=== PATIENT | female | born 1940 | race Caucasian/White ===

== ENCOUNTER 2018-10-26 09:59 | Day surgery (SDC) | payer MEDICARE ==
[~2018-10-26 09:59] MED LIST: Acetaminophen TAB* 325 MG PO PRN; Buffered Lidocaine 1% SYRIN* 1 ML/SYRINGE INTRADERM ONE
[2018-10-26] MEDS ORDERED: Lidocaine 2% EPI 1:200000 MPF*10-20 ML VIAL ONE (12:13)
[2018-10-26] MEDS ORDERED: acetaZOLAMIDE TAB* 250 MG ONE (12:13)
[2018-10-26] MEDS ORDERED: Midazolam* 1 MG/ML 2 ML VIAL (2 MG) ONE (12:13)
[2018-10-26] MEDS ORDERED: Proparacaine 0.5% OPHTH.SOL* 15 ML BTL ONE (12:13)
[2018-10-26] MEDS ORDERED: Povidone Iodine 5% OPTH* 30 ML BTL ONE (12:13)
[2018-10-26] MEDS ORDERED: Neomycin/Polymy/Dex OPTH.SUSP* MAXITROL 0.1% 5 ML ONE (12:13)
[2018-10-26] MEDS ORDERED: Lidocaine 1%* 5 ML VIAL ONE (12:13)
[2018-10-26] MEDS ORDERED: Cyclopentolate 1% OPTH.SOL* 2 ML BTL ONE (12:13)
[2018-10-26] MEDS ORDERED: Phenylephrine OPHTH SOL 2.5%* 2 ML ONE (12:13)
[2018-10-26] MEDS ORDERED: Ketorolac 0.5% OPHTH (NF) 0.5 % 5 ML BTL ONE (12:13)
[2018-10-26 13:14] VITALS: BP 135/59
--- NOTE | 2018-10-26 13:43 | OP ---
OPERATIVE NOTE: DATE OF OPERATION: 10/26/18 DATE OF : 40 SURGEON: Shai John M.D. PREOPERATIVE DIAGNOSIS: Cataract, right eye. POSTOPERATIVE DIAGNOSIS: Cataract, right eye. OPERATIVE PROCEDURE: Extracapsular cataract extraction with intraocular lens implant right eye. PROCEDURE: The patient was brought to the operating room after being given 1/2% Alcaine with epineph rine drops in the preoperative area. The eye was prepped and draped in the usual sterile fashion. S terile drape and eyelid speculum were placed. Again, topical 1/2% Alcaine with epinephrine was given . A paracentesis incision was made at the 9 o'clock position with the No.75 blade. Clear cornea inc ision 2.2 x 2.2-mm was created at the 12 o'clock position starting at the anterior limbus using the 2 .2-mm keratome. The anterior chamber was irrigated with 0.4 mL of 1% non-preservative intracameral l idocaine and filled with DisCoVisc. A capsulorrhexis was completed using the cystotome and the Utrat a forceps. Hydrodissection was performed with balanced salt solution. The lens nucleus was removed w ith the Phacoemulsification handpiece without incident. Cortex was removed with the irrigation-aspir ation handpiece. The capsular bag was re-inflated using DisCoVisc and an [id number] 19.5 implant was ins erted with the shooter, oriented to the 94-degree meridian. All measurements were confirmed with ORA . The irrigation-aspiration handpiece was used to remove all residual DisCoVisc. The eye was refill ed with balanced salt solution and the wound checked and found to be watertight. Topical Maxitrol dr ops were given. [id number]/[facility] #: [id number]
== END 2018-10-26 13:07 | disposition home or self-care (01) ==
LOC: OREAST 09:59
PROVIDERS: ATTEND Specialist
DX: H25.11 Age-related nuclear cataract, right eye (principal); D18.09 Hemangioma of other sites; E03.9 Hypothyroidism, unspecified; M19.90 Unspecified osteoarthritis, unspecified site; E78.00 Pure hypercholesterolemia, unspecified; L40.9 Psoriasis, unspecified; Q85.8 Other phakomatoses, not elsewhere classified; G62.9 Polyneuropathy, unspecified
CPT/HCPCS: A9270-GY; J2250; V2787

== ENCOUNTER 2018-11-02 08:26 | Day surgery (SDC) | payer MEDICARE ==
[2018-11-02] MEDS ORDERED: Midazolam* 1 MG/ML 2 ML VIAL (2 MG) ONE (09:56)
[2018-11-02] MEDS ORDERED: Cyclopentolate 1% OPTH.SOL* 2 ML BTL ONE (09:57)
[2018-11-02] MEDS ORDERED: Phenylephrine OPHTH SOL 2.5%* 2 ML ONE (09:57)
[2018-11-02] MEDS ORDERED: Proparacaine 0.5% OPHTH.SOL* 15 ML BTL ONE (09:57)
[2018-11-02] MEDS ORDERED: Lidocaine 1%* 5 ML VIAL ONE (09:57)
[2018-11-02] MEDS ORDERED: Povidone Iodine 5% OPTH* 30 ML BTL ONE (09:57)
[2018-11-02] MEDS ORDERED: acetaZOLAMIDE TAB* 250 MG ONE (09:57)
[2018-11-02] MEDS ORDERED: Neomycin/Polymy/Dex OPTH.SUSP* MAXITROL 0.1% 5 ML ONE (09:57)
[2018-11-02] MEDS ORDERED: Ketorolac 0.5% OPHTH (NF) 0.5 % 5 ML BTL ONE (09:57)
[2018-11-02] MEDS ORDERED: Lidocaine 2% EPI 1:200000 MPF*10-20 ML VIAL ONE (09:57)
[2018-11-02 11:13] VITALS: BP 130/70
--- NOTE | 2018-11-02 11:22 | OP ---
OPERATIVE NOTE: DATE OF OPERATION: 11/02/18 DATE OF : 40 SURGEON: Shai John M.D. PREOPERATIVE DIAGNOSIS: Cataract, left eye. POSTOPERATIVE DIAGNOSIS: Cataract, left eye. OPERATIVE PROCEDURE: Extracapsular cataract extraction with intraocular lens implant, left eye. PROCEDURE: The patient was brought to the operating room after being given 1/2% Alcaine with epineph rine drops in the preoperative area. The eye was prepped and draped in the usual sterile fashion. S terile drape and eyelid speculum were placed. Again, topical 1/2% Alcaine with epinephrine was given . A paracentesis incision was made at the 3 o'clock position with the No.75 blade. Clear cornea inc ision 2.2 x 2.2-mm was created at the 6 o'clock position starting at the anterior limbus using the 2. 2-mm keratome. The anterior chamber was irrigated with 0.4 mL of 1% non-preservative intracameral li docaine and filled with DisCoVisc. A capsulorrhexis was completed using the cystotome and the Utrata forceps. Hydrodissection was performed with balanced salt solution. The lens nucleus was removed wi th the Phacoemulsification handpiece without incident. Cortex was removed with the irrigation-aspira tion handpiece. The capsular bag was re-inflated using DisCoVisc and an [id number] 20 implant was insert ed with the shooter, oriented to the 84-degree meridian. Horizontal reference edwards were made with t he patient in the seated position and all measurements confirmed with ORA. The irrigation- aspiratio n handpiece was used to remove all residual DisCoVisc. The eye was refilled with balanced salt solut ion and the wound checked and found to be watertight. Topical Maxitrol drops were given. [id number]/[facility] #: [id number]
== END 2018-11-02 10:58 | disposition home or self-care (01) ==
LOC: OREAST 08:26
PROVIDERS: ATTEND Specialist
DX: H25.12 Age-related nuclear cataract, left eye (principal); D18.09 Hemangioma of other sites; I10 Essential (primary) hypertension; E78.5 Hyperlipidemia, unspecified; E03.9 Hypothyroidism, unspecified
CPT/HCPCS: A9270-GY; J2250; V2787

== ENCOUNTER 2019-05-21 10:42 | Emergency (ER) | payer MEDICARE ==
--- OUTSIDE RECORDS SUMMARY | 2019-05-21 11:03 | XMS REPORT | Continuity of Care Document ---
:1940 External Reference #:[id number] Author Name TAMIKA Dumont (transmitted by agent of provider Felicity Santana) Address [address] [place] [id number] Care Team Providers Name Role Phone Nadeen Mcclain MD - Internal Medicine Care Team Information Business Data Analyst Problems Active Problems Provider Date Psoriasis with arthropathy Luis Amezcua M.D. Onset: 01/22/2012 Medications Correction (Current) Use Encounter Luis Amezcua M.D. Onset: Psoriasis Luis Amezcua M.D. Onset: 01/22/2012 Taking medication TAMIKA Dumont Onset: 07/12/2014 Taking medication TAMIKA Dumont Onset: 06/06/2015 Social History Type Date Description Comments Sex Unknown ETOH Use Denies alcohol use Tobacco Use Start: Unknown End: Patient is a former pt quit at age 34 Unknown smoker Smoking Status Reviewed: 04/28/19 Patient is a former pt quit at age 34 smoker Exercise Exercises regularly Type/Frequency Allergies, Adverse Reactions, Alerts Description No Known Drug Allergies Medications Active Medications SIG Qnty Indications Ordering Date Provider Cyclobenzaprine HCL take one tablet 14tabs Sb Frye, 05/25/2018 5mg by mouth at [employer] [facility] Tablets bedtime as needed for back pain Shingrix 2 doses 6 month 2units Z23 Sb Frye, 10/29/2017 50mcg Suspension Rec apart [employer] Calcipotriene/Betamethas use 2x daily on 60gm L40.9 Mattofimahogany Frye, 2016 one Dipropionate lesions for 2 [employer] 0.005-0.064% weeks on and 1 Ointment week off Methotrexate Take 6 Tablets 72tabs L40.50 Zsofia Uday, 01/22/2017 2.5mg Tablets By Mouth Every [employer] Week Z79.899 Voltaren apply to affected 1tubes L40.50 Sb Frye, 10/21/2012 1% Gel area twice a day, [employer] as needed Hydroxychloroquine Sulfate take 1 tablet by 180tabs L40.50 Sb Frye, 02/02/2011 200mg mouth twice a day [employer] Tablets Z79.899 Folic Acid 1 po qd 90tabs Z79.899 Luis Amezcua, 07/31/2010 1mg Tablets M.D. Ketorolac Tromethamine Instill One Drop Unknown 0.5% In Right Eye Three Solution Times Daily, Start The Day Before Surgery Ciprofloxacin HCL Instill One Drop Unknown 0.3% In Right Eye Three Solution Times Daily, Start The Day Before Surgery Prednisolone Acetate Instill 1 Drop In Unknown 1% The Right Eye Suspension Three Times Daily - Taper as Directed Refresh use daily as Unknown 1.4-0.6% Solution needed for dry eyes Econazole Nitrate topical bid max 4 90units Luis Endo, 1% Cream weeks M.D. Bilberry 1 daily Unknown 500mg Capsules Melatonin 1 po qhs 90caps Unknown 5mg Capsules Restasis one gtts ou bid 3months Unknown 0.05% Emulsion Gabapentin 1 tablet po q hs 30caps Unknown 400mg Capsules Levoxyl 1 po qd 30tabs Unknown 50mcg Tablets Simvastatin 1 po qd Unknown 20mg Tablets Immunizations Description No Information Available Vital Signs Date Vital Result Comment 04/28/2019 11:36am Height 65 inches 5'5" Weight 171.38 lb Heart Rate 64 /min BP Systolic Sitting 112 mmHg BP Diastolic Sitting 66 mmHg Body Temperature 98.1 F O2 % BldC Oximetry 96 % BMI (Body Mass Index) 28.5 kg/m2 01/27/2019 11:27am Height 65 inches 5'5" Weight 167.00 lb Heart Rate 65 /min BP Systolic 135 mmHg BP Diastolic 72 mmHg O2 % BldC Oximetry 96 % BMI (Body Mass Index) 27.8 kg/m2 Results Test Acquired Date Facility Test Result H/L Range Note CBC Auto 04/26/2019 [facility] White Blood 5.3 10^3/uL Normal 3.5-10.[address] [place] [address] [phone] Red Blood Count 3.90 10^6/uL Normal 3.70-4.87 Hemoglobin 12.7 g/dL Normal 12.0-16.0 Hematocrit 37 % Normal 35-47 Mean Corpuscular Volume 95 fL Normal 80-97 Mean Corpuscular Hemoglobin 33 pg High 27-31 Mean Corpuscular HGB Conc 34 g/dL Normal 31-36 Red Cell Distribution Width 14 % Normal 10-15 Platelet Count 149 10^3/uL Low 150-450 Mean Platelet Volume 7.5 fL Normal 7.4-10.4 Abs Neutrophils 2.8 10^3/uL Normal 1.5-7.7 Abs Lymphocytes 1.9 10^3/uL Normal 1.0-4.8 Abs Monocytes 0.4 10^3/uL Normal 0-0.8 Abs Eosinophils 0.1 10^3/uL Normal 0-0.6 Abs Basophils 0.0 10^3/uL Normal 0-0.2 Abs Nucleated RBC 0.0 10^3/uL Granulocyte % 53.4 % Lymphocyte % 36.7 % Monocyte % 7.8 % Eosinophil % 1.4 % Basophil % 0.7 % Nucleated Red Blood Cells % 0.1 Comp Metabolic 04/26/2019 [facility] Sodium 140 mmol/L Normal 135-[address] [place] [address] [phone] Potassium 4.2 mmol/L Normal 3.5-5.0 Chloride 104 mmol/L Normal 101-111 Co2 Carbon Dioxide 31 mmol/L Normal 22-32 Anion Gap 5 mmol/L Normal 2-11 Glucose 87 mg/dL Normal 70-100 Blood Urea Nitrogen 14 mg/dL Normal 6-24 Creatinine 0.90 mg/dL Normal 0.51-0.95 BUN/Creatinine Ratio 15.6 Normal 8-20 Calcium 9.6 mg/dL Normal 8.6-10.3 Total Protein 6.8 g/dL Normal 6.4-8.9 Albumin 4.2 g/dL Normal 3.2-5.2 Globulin 2.6 g/dL Normal 2-4 Albumin/Globulin Ratio 1.6 Normal 1-3 Total Bilirubin 0.50 mg/dL Normal 0.2-1.0 Alkaline Phosphatase 100 U/L Normal 34-104 Alt 17 U/L Normal 7-52 Ast 19 U/L Normal 13-39 Egfr Non- 60.4 >60 Egfr 73.1 >60 1 Laboratory test 04/26/2019 [facility] C Reactive < 1.00 Normal <8.[address] Protein mg/[place] [address] [phone] Erythrocyte Sed Rate 36 mm/Hr High 0-29 CBC Auto 2019 [facility] White Blood 4.6 10^3/uL Normal 3.5-10.[address] [place] [address] [phone] Red Blood Count 3.82 10^6/uL Normal 3.70-4.87 Hemoglobin 12.1 g/dL Normal 12.0-16.0 Hematocrit 36 % Normal 35-47 Mean Corpuscular Volume 95 fL Normal 80-97 Mean Corpuscular Hemoglobin 32 pg High 27-31 Mean Corpuscular HGB Conc 33 g/dL Normal 31-36 Red Cell Distribution Width 14 % Normal 10-15 Platelet Count 146 10^3/uL Low 150-450 Mean Platelet Volume 8.0 fL Normal 7.4-10.4 Abs Neutrophils 2.5 10^3/uL Normal 1.5-7.7 Abs Lymphocytes 1.7 10^3/uL Normal 1.0-4.8 Abs Monocytes 0.4 10^3/uL Normal 0-0.8 Abs Eosinophils 0.1 10^3/uL Normal 0-0.6 Abs Basophils 0.0 10^3/uL Normal 0-0.2 Abs Nucleated RBC 0.0 10^3/uL Granulocyte % 53.0 % Lymphocyte % 36.3 % Monocyte % 7.7 % Eosinophil % 2.1 % Basophil % 0.9 % Nucleated Red Blood Cells % 0.1 Comp Metabolic 2019 [facility] Sodium 138 mmol/L Normal 135-[address] [place] [address] [phone] Potassium 4.8 mmol/L Normal 3.5-5.0 Chloride 103 mmol/L Normal 101-111 Co2 Carbon Dioxide 32 mmol/L Normal 22-32 Anion Gap 3 mmol/L Normal 2-11 Glucose 101 mg/dL High 70-100 Blood Urea Nitrogen 18 mg/dL Normal 6-24 Creatinine 0.82 mg/dL Normal 0.51-0.95 BUN/Creatinine Ratio 22.0 High 8-20 Calcium 9.2 mg/dL Normal 8.6-10.3 Total Protein 6.2 g/dL Low 6.4-8.9 Albumin 4.1 g/dL Normal 3.2-5.2 Globulin 2.1 g/dL Normal 2-4 Albumin/Globulin Ratio 2.0 Normal 1-3 Total Bilirubin 0.30 mg/dL Normal 0.2-1.0 Alkaline Phosphatase 101 U/L Normal 34-104 Alt 25 U/L Normal 7-52 Ast 20 U/L Normal 13-39 Egfr Non- 67.2 >60 Egfr 81.4 >60 2 Laboratory test 2019 [facility] C Reactive 1.14 mg/L Normal <8.[address] [place] [address] [phone] Erythrocyte Sed Rate 33 mm/Hr High 0-29 1 Because ethnic data is not always readily available, this report includes an eGFR for both -Americans and non- Americans. The National Kidney Disease Education Program (NKDEP) does not endorse the use of the MDRD equation for patients that are not between the ages of 18 and 70, are , have extremes of body size, muscle mass, or nutritional status, or are non- or non-. According to the National Kidney Foundation, irrespective of diagnosis, the stage of the disease is based on the level of kidney function: Stage Description GFR(mL/min/1.73 m(2)) 1 Kidney damage with normal or decreased GFR 90 2 Kidney damage with mild decrease in GFR 60-89 3 Moderate decrease in GFR 30-59 4 Severe decrease in GFR 15-29 5 Kidney failure <15 (or dialysis) 2 Because ethnic data is not always readily available, this report includes an eGFR for both -Americans and non- Americans. The National Kidney Disease Education Program (NKDEP) does not endorse the use of the MDRD equation for patients that are not between the ages of 18 and 70, are , have extremes of body size, muscle mass, or nutritional status, or are non- or non-. According to the National Kidney Foundation, irrespective of diagnosis, the stage of the disease is based on the level of kidney function: Stage Description GFR(mL/min/1.73 m(2)) 1 Kidney damage with normal or decreased GFR 90 2 Kidney damage with mild decrease in GFR 60-89 3 Moderate decrease in GFR 30-59 4 Severe decrease in GFR 15-29 5 Kidney failure <15 (or dialysis) Procedures Date Code Description Status 02/02/2019 987615102 Bone Mineral Density Test Completed 03/29/2015 527197453 Diabetic Retinal Eye Exam Completed Medical Devices Description No Information Available Encounters Type Date Location Provider Dx Diagnosis Office Visit 01/27/2019 Rheumatology Sb Frye, L40.50 Arthropathic 11:30a [facility] psoriasis, unspecified L40.9 Psoriasis, unspecified M25.552 Pain in left hip Z79.899 Other terminologist (current) drug therapy M85.9 Disorder of bone density and structure, unspecified Assessments Date Code Description Provider 04/28/2019 L40.50 Arthropathic psoriasis, unspecified Zsofia Uday, [employer] 04/28/2019 L40.9 Psoriasis, unspecified Zsofia Uday, [employer] 04/28/2019 M85.9 Disorder of bone density and structure, Zsofia Uday, [employer] unspecified 04/28/2019 Z79.899 Other fdc (current) drug therapy Zsofia Uday, [employer] 01/27/2019 L40.50 Arthropathic psoriasis, unspecified Zsofia Uday, [employer] 01/27/2019 L40.9 Psoriasis, unspecified Zsofia Uday, [employer] 01/27/2019 M25.552 Pain in left hip Zsofia Uday, [employer] 01/27/2019 Z79.899 Other fdc (current) drug therapy Zsofia Uday, [employer] 01/27/2019 M85.9 Disorder of bone density and structure, Zsofia Uday, [employer] unspecified Plan of Treatment Future Appointment(s):07/28/2019 11:30 am - TAMIKA Dumont at [facility]04/28/2019 - Sb Frye FNPL40.50 Arthropathic psoriasis, unspecifiedNew Labs:CBC Auto Diff, Ordered: 04/28/19Comp Metabolic Panel, Ordered: 04/28/19C Reactive Protein, Ordered: 04/28/19Erythrocyte Sed Rate, Ordered: 04/28/19Comments:Your arthritis seems to be clinically well controlled at this time.Please, continue with the presentmedication regime Please call the office if you develop any sign or symptoms of infection, increasedskin or articular involvement or acute change in your health.Follow up:3 month labs uaqdxG79.9 Psoriasis, hotdritmlsyC91.9 Disorder of bone density and structure, unspecifiedComments:OSTEOPENIA:Your DEXA scan showed a decreased bone density as compared to peak bone density.We discussed medical treatment It is essential that you get adequate calcium and vitamin D.You should be getting at least 1200 mg of calcium and 1000 IU of Vitamin D on a daily basis in your diet and/or with supplementation. Calcium citrate is the most bioavailable preparation; dairy is an excellent source. It is also very important to be doing weight bearing exercises regularly.We discussed the medication Alendronate that would be recommended to start on.Z79.899 Other terminologist (current) drug therapy Functional Status Description No Information Available Mental Status Description No Information Available Referrals Description No Information Available
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
[2019-05-21 13:33] VITALS: BP 140/70
== END 2019-05-21 13:32 | disposition home or self-care (01) ==
LOC: ED 10:42
DX: M79.605 Pain in left leg (principal); E07.9 Disorder of thyroid, unspecified; Z87.891 Personal history of nicotine dependence
CPT/HCPCS: 93005; 99283